=== PATIENT | female | born 1960 | race Caucasian/White ===

== ENCOUNTER 2018-09-08 11:35 | Inpatient (IN) ==
[2018-09-08] MEDS ORDERED: MOM Conc 10 ML UD.LIQ PO PRN (13:50)
[2018-09-08] MEDS ORDERED: traMADol 50 MG TABLET PO PRN (13:50)
[2018-09-08] MEDS ORDERED: Naloxone 0.4 MG/ML INJ IVP PRN (13:50)
[2018-09-08] MEDS ORDERED: *HR* Promethazine 25 MG/ML VIAL IVP PRN (13:50)
[2018-09-08] MEDS ORDERED: Acetaminophen 325 MG TABLET PO PRN (13:50)
[2018-09-08] MEDS ORDERED: Ondansetron 4 MG/2 ML VIAL IVP PRN (13:50)
[2018-09-08] MEDS ORDERED: Mag Hydrox/Al Hydrox/Simeth 30 ML UDC PO PRN (13:50)
[2018-09-08] MEDS ORDERED: D5% in Water 1,000 ML IVC PRN (13:54)
[2018-09-08] MEDS ORDERED: *HR* Dextrose 50 % in Water (Syg) 50 ML SYRINGE IVP PRN (13:54)
[2018-09-08] MEDS ORDERED: Dextrose Gel 15 GM/37.5 ML TUBE PO PRN ×2 (13:54)
--- NOTE | 2018-09-08 14:07 | Internal Med History&Physical ---
Date of Encounter: 09/08/18 Time of Encounter: 14:07 Internal Medicine - H&P: HPI Admitted From: Home Plans for Post Hospital Care: Home History of present illness: Ms. Orosco is a 58 year old female with past medical history of diabetes and hypertension presented with 8 days history of right lower extremity painful rash. It was last Thursday when she first found out boil at the upper right thigh, the bild rapidly progressed and spread to almost whole right thigh, she was seen here at ED, Bactrim was prescribed and pt was discharged home. She took the meds and noticed the red area has decreased. After she took abx for 7 days, there is still red area below the groin persisted and became itchy and painful. PT was seen at General Surgery office and a ultrasound did not show abscess. She wa directed to this hospital for admission. She denies trauma or insect bite to the right leg. No fever, chills, or night sweats. No Hx of MRSA of similar skin infection in the past. She has hx of DM but was well controlled. Reported hx of HTN and take meds for that. Code status discussed with patient and she wishes to be full code. Past Med Surg Social Fam HX - Past Medical History Medical history: diabetes, GERD, hyperlipidemia, hypertension Psychiatric history: no psych history - Past Surgical History Surgical History: no surgical history - Social History Smoking Status: Former smoker Smokeless Tobacco Status: No Alcohol use: none Drug use: none Internal Medicine - H&P: Meds Ranitidine HCl [Heartburn Relief] 150 mg PO BID 02/10/16 [History] Simvastatin [Zocor] 20 mg PO DAILY 02/10/16 [History] metFORMIN [Glucophage] 500 mg PO BID 02/10/16 [History] Telmisartan/Hydrochlorothiazid 20 mg PO DAILY 04/24/18 [History] Clindamycin [Cleocin] 150 mg PO Q6HR #40 capsule 08/31/18 [Rx] Sulfamethoxazole/Trimeth DS [Bactrim DS] 1 each PO BID #20 tablet 08/31/18 [Rx] Allergy/AdvReac Type Severity Reaction Status Date / Time No Known Allergies Allergy Verified 04/24/18 14:00 All Systems PM: A 10-system review of systems was performed and is negative for pertinent findings except as documented above in the HPI. Review of systems: REVIEW OF SYSTEMS: CONSTITUTIONAL: No weight loss, fever, chills, weakness or fatigue. HEENT: Eyes: No visual loss, blurred vision, double vision or yellow sclerae. Ears, Nose, Throat: No hearing loss, sneezing, congestion, runny nose or sore throat. SKIN: No rash or itching. CARDIOVASCULAR: No chest pain, chest pressure or chest discomfort. No palpitations or edema. RESPIRATORY: No shortness of breath, cough or sputum. GASTROINTESTINAL: No anorexia, nausea, vomiting or diarrhea. No abdominal pain or blood. GENITOURINARY: No dysuria, urgency, or frequency. NEUROLOGICAL: No headache, dizziness, syncope, paralysis, ataxia, numbness or tingling in the extremities. No change in bowel or bladder control. MUSCULOSKELETAL: No muscle, back pain, joint pain or stiffness. HEMATOLOGIC: No anemia, bleeding or bruising. LYMPHATICS: No enlarged nodes. No history of splenectomy. PSYCHIATRIC: No history of depression or anxiety. ENDOCRINOLOGIC: No reports of sweating, cold or heat intolerance. No polyuria or polydipsia. - Constitutional General appearance: Present: A&O X 3 Exam: PHYSICAL EXAMINATION: GENERAL APPEARANCE: The patient is alert, oriented and in no acute distress. HEENT: Head is normocephalic. The sinuses are nontender. Pupils are equal and reactive. The nares are patent. Oropharynx clear without lesions. NECK: Supple without lymphadenopathy. HEART: Regular rate and rhythm. LUNGS: No crackles or wheezes are heard. ABDOMEN: Soft, nontender, nondistended with good bowel sounds heard. Inguinal area is normal. EXTREMITIES: right thigh erythematous rash noted without signs of abscess. NEUROLOGICAL: Gross nonfocal. SKIN: Warm and dry without any rash. - Assessment and Plan (1) Cellulitis of right thigh Status: Acute Assessment and plan: Right thigh cellulitis, failed oral abx, no abscess. Blood cx ordered. IV abx with Zosyn and vanco started. (2) HTN (hypertension) Status: Chronic Assessment and plan: continue monitoring BP, continue home meds. Qualifiers: Hypertension type: essential hypertension Qualified Code(s): I10 - Essential (primary) hypertension (3) Diabetes mellitus Status: Chronic Assessment and plan: A1c 5.9 in 03/2018. takes metformin at home. Hold metformin, started on insulin sliding scale. Qualifiers: Diabetes mellitus type: type 2 Diabetes mellitus penitentiary insulin use: without penitentiary use Diabetes mellitus complication status: without complication Qualified Code(s): E11.9 - Type 2 diabetes mellitus without complications (4) Morbid obesity with BMI of 40.0-44.9, adult Status: Chronic Assessment and plan: weight control discussed with patient. (5) DVT prophylaxis Status: Acute Assessment and plan: Heparin sq. - Time Spent With Patient Total time spent is greater than 50% in coordination of care (as documented) at patient's floor/unit and/or counseling patient: Greater than 35 minutes
[2018-09-08 15:34] LABS: Basophils # 0.1 K/mcL (0.0-0.2); Basophils % 0.9 %; Eosinophils # 0.4 K/mcL (0.0-0.6); Eosinophils % 4.4 %; Hematocrit 41.7 % (35.3-44.9); Hemoglobin 13.6 g/dL (11.5-15.4); Immature Granulocytes % 0.5 % (0-4); Lymphocytes % 25.2 %; Mean Corpuscular HGB Conc 32.6 g/dL (31.6-35.5); Mean Corpuscular Hemoglobin 29.8 pg (28.0-33.3); Mean Corpuscular Volume 91.4 fL (83.0-100.0); Mean Platelet Volume 9.2 fL (9.4-12.4); Monocytes # 0.6 K/mcL (0.0-1.3); Monocytes % 7.9 %; Neutrophils # 4.9 K/mcL (1.6-8.9); Platelet Count 341 K/mcL (140-400); Red Blood Count 4.56 M/mcL (3.82-4.97); Red Cell Distribution Width 12.6 % (11.5-14.5); Segmented Neutrophils % 61.1 %; White Blood Count 8.1 K/mcL (4.3-11.1)
[2018-09-08 15:54] LABS: BUN/Creatinine Ratio 17 (6-26); Blood Urea Nitrogen 13 mg/dL (6-20); Calcium 9.7 mg/dL (8.6-10.3); Carbon Dioxide 28 mEq/L (23-29); Chloride 101 mEq/L (98-107); Glucose 89 mg/dL (70-105); Osmolality,Calculated 286 (280-300); Potassium 4.2 mEq/L (3.5-5.1); Sodium 138 mEq/L (136-145); eGFR For African Americans > 60 (> 60); eGFR For Non-African Americans > 60 (> 60)
[2018-09-08] MEDS: Piperacillin/Tazobactam 3.375 GM in 0.9 % Sodium Chloride Mini Bag 100 ML IVPB SCH (16:18)
[2018-09-08] MEDS: Insulin LISPRO 300 UNITS/3 ML VIAL SQ SCH ×2 (18:33→21:38)
[2018-09-08] MEDS: *HR* Heparin 5,000 UNIT/ML VIAL SQ SCH (18:57)
[2018-09-08] MEDS: Famotidine 20 MG TABLET PO SCH (21:37)
[2018-09-09] MEDS: Piperacillin/Tazobactam 3.375 GM in 0.9 % Sodium Chloride Mini Bag 100 ML IVPB SCH ×3 (00:30→16:28)
--- NOTE | 2018-09-09 07:36 | Internal Med Progress Note ---
<Raheem Garcia - Last Filed: 09/09/18 14:34> Hospitalist Progress Note - Encounter Date of Encounter: 09/09/18 - Exam Vitals: Temp Pulse Resp BP Pulse Ox 98.0 F 71 17 116/75 96 09/09/18 12:00 09/09/18 12:00 09/09/18 12:00 09/09/18 12:00 09/09/18 12:00 - Assessment and Plan (1) Cellulitis of right thigh Current Visit: No Status: Acute (2) HTN (hypertension) Current Visit: No Status: Chronic (3) Diabetes mellitus Current Visit: No Status: Chronic (4) Morbid obesity with BMI of 40.0-44.9, adult Current Visit: No Status: Chronic (5) DVT prophylaxis Current Visit: No Status: Acute - Time Spent with Patient Total time spent is greater than 50% in coordination of care (as documented) at patient's floor/unit and/or counseling patient: Internal Medicine: Result - Labs CBC & Chem 7: 09/08/18 15:17 09/09/18 06:50 Labs: Short CBC 09/08/18 Range/Units 15:17 WBC 8.1 (4.3-11.1) K/mcL Hgb 13.6 (11.5-15.4) g/dL Hct 41.7 (35.3-44.9) % Plt Count 341 (140-400) K/mcL Neutrophils # 4.9 (1.6-8.9) K/mcL BMP 09/08/18 09/09/18 15:17 06:50 Sodium 138 137 Potassium 4.2 4.2 Chloride 101 101 Carbon Dioxide 28 27 BUN 13 14 Creatinine 0.75 0.82 Glucose 89 149 H Calcium 9.7 9.5 Liver Function 09/09/18 Range/Units 06:50 Total Bilirubin 0.4 (0.3-1.0) mg/dL AST 19 (13-39) Units/L ALT 30 (7-52) Units/L Alkaline Phosphatase 104 (34-104) Units/L Albumin 4.3 (3.5-5.7) g/dL Consult Discharge Plan - Plan Referrals: Oswaldo Metzger DO [Primary Care Provider] - - Attending Attestation I examined this patient and my medical decision-making was reviewed with the Resident Physician. I agree with the documented findings, disposition and treatment plan as described except to the extent set forth below. Patient seen and examined at bedside. Patient states that she feels better today. She feels like her pain and swelling in her left thigh is improving. De nies any fevers or chills. On exam she has erythema of the left upper thigh with a small area of ulceration with no drainage present. No obvious fluctuance or induration appreciated. Left lower extremity cellulitis: Failed outpatient treatment with 7 days of Bactrim. Currently on vancomycin and Zosyn seems to be recovering well. Afebrile, no leukocytosis. Continue IV antibiotics for now. Type 2 diabetes: Blood sugars under good control. Continue sliding scale insulin. <Sterling Chaparro - Last Filed: 09/09/18 14:52> Hospitalist Progress Note - Encounter Date of Encounter: 09/09/18 Time of Encounter: 08:40 - Subjective Interval History: When seen today patient was resting comfortably in her bed. She says the swelling in her left lower extremity has decreased since admission and continues to improve. She says the pain has also improved as well. Denies any fever. Denies any chest pain or shortness of breath. Denies any nausea or vomiting. Denies any abdominal pain. - Exam Vitals: Temp Pulse Resp BP Pulse Ox 97.9 F 73 14 115/62 97 09/09/18 03:33 09/09/18 03:33 09/09/18 03:33 09/09/18 03:33 09/09/18 03:33 Exam: GENERAL APPEARANCE: Well developed, well nourished, alert and cooperative, and appears to be in no acute distress. HEAD: normocephalic. EYES: vision is grossly intact. EARS: hearing grossly intact. NOSE: No nasal discharge. CARDIAC: Normal S1 and S2. No S3, S4 or murmurs. Rhythm is regular. Extremities are warm and well perfused. Capillary refill is less than 2 seconds. No carotid bruits. LUNGS: Clear to auscultation and percussion without rales, rhonchi, wheezing or diminished breath sounds. ABDOMEN: Positive bowel sounds. Soft, nondistended, nontender. No guarding or rebound. No masses. MUSKULOSKELETAL: Adequately aligned spine. ROM intact spine and extremities. No joint erythema or tenderness. Normal muscular development. Normal gait. EXTREMITIES: No significant deformity or joint abnormality. Erythematous swelling of the LLE 3 cm in diameter with no pain to palpation. Peripheral pulses intact. No varicosities. LOWER EXTREMITY: Examination of both feet reveals all toes to be normal in size and symmetry, normal range of motion, normal sensation with distal capillary filling of less than 2 seconds without tenderness, swelling, discoloration, nodules, weakness or deformity; examination of both ankles, knees, legs, and hips reveals normal range of motion, normal sensation without tenderness, swelling, discoloration, crepitus, weakness or deformity. SKIN: Skin normal color, texture and turgor with no lesions or eruptions. PSYCHIATRIC: The mental examination revealed the patient was oriented to person, place, and time. - Assessment and Plan (1) Cellulitis of left thigh Current Visit: Yes Status: Acute Assessment and Plan: Patient had failed oral antibiotic therapy with Bactrim at home. Ultrasound showed no abscess. No history of MRSA infection. Started on Zosyn and vancomycin. Patient has been afebrile. Vital signs stable. Left lower extremity swelling has decreased since admission. Plan: - Continue with Zosyn and vancomycin day #2. - Blood cultures pending, NGTD. (2) HTN (hypertension) Current Visit: No Status: Chronic Assessment and Plan: Blood pressure controlled. Plan: C/W losartan. (3) Diabetes mellitus Current Visit: No Status: Chronic Assessment and Plan: Blood sugars controlled. Last A1c of 5.9. Plan: - C/W sliding scale. (4) Morbid obesity with BMI of 40.0-44.9, adult Current Visit: No Status: Chronic Assessment and Plan: Weight control discussed with patient. DVT Prophylaxis: Heparin subcutaneously. - Time Spent with Patient Total time spent is greater than 50% in coordination of care (as documented) at patient's floor/unit and/or counseling patient: Internal Medicine: Result - Labs CBC & Chem 7: 09/08/18 15:17 09/09/18 06:50 Labs: Short CBC 09/08/18 Range/Units 15:17 WBC 8.1 (4.3-11.1) K/mcL Hgb 13.6 (11.5-15.4) g/dL Hct 41.7 (35.3-44.9) % Plt Count 341 (140-400) K/mcL Neutrophils # 4.9 (1.6-8.9) K/mcL BMP 09/08/18 15:17 Sodium 138 Potassium 4.2 Chloride 101 Carbon Dioxide 28 BUN 13 Creatinine 0.75 Glucose 89 Calcium 9.7 <Raheem Garcia - Last Filed: 09/09/18 14:34> (2) HTN (hypertension) Qualifiers: Hypertension type: essential hypertension Qualified Code(s): I10 - Essential (primary) hypertension (3) Diabetes mellitus Qualifiers: Diabetes mellitus type: type 2 Diabetes mellitus long-term insulin use: without long-term use Diabetes mellitus complication status: without complication Qualified Code(s): E11.9 - Type 2 diabetes mellitus without complications <Sterling Chaparro - Last Filed: 09/09/18 14:52> (2) HTN (hypertension) Qualifiers: Hypertension type: essential hypertension Qualified Code(s): I10 - Essential (primary) hypertension (3) Diabetes mellitus Qualifiers: Diabetes mellitus type: type 2 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
[2018-09-09 08:15] LABS: Alanine Aminotransferase 30 Units/L (7-52); Albumin 4.3 g/dL (3.5-5.7); Albumin/Globulin Ratio 1.3 (1.1-2.2); Alkaline Phosphatase 104 Units/L (34-104); Aspartate Amino Transferase 19 Units/L (13-39); BUN/Creatinine Ratio 17 (6-26); Bilirubin,Total 0.4 mg/dL (0.3-1.0); Blood Urea Nitrogen 14 mg/dL (6-20); Calcium 9.5 mg/dL (8.6-10.3); Carbon Dioxide 27 mEq/L (23-29); Chloride 101 mEq/L (98-107); Globulin 3.3 g/dL (2.4-3.5); Glucose 149 mg/dL (70-105); Magnesium 2.3 mg/dL (1.6-2.6); Osmolality,Calculated 287 (280-300); Potassium 4.2 mEq/L (3.5-5.1); Sodium 137 mEq/L (136-145); Total Protein 7.6 g/dL (6.4-8.9); eGFR For African Americans > 60 (> 60); eGFR For Non-African Americans > 60 (> 60)
[2018-09-09] MEDS: *HR* Heparin 5,000 UNIT/ML VIAL SQ SCH ×2 (08:16→16:29)
[2018-09-09] MEDS: Insulin LISPRO 300 UNITS/3 ML VIAL SQ SCH ×4 (08:16→21:37)
[2018-09-09] MEDS: hydroCHLOROthiazide 25 MG TABLET PO SCH (08:18)
[2018-09-09] MEDS: Famotidine 20 MG TABLET PO SCH ×3 (08:18→21:46)
[2018-09-10] MEDS: Piperacillin/Tazobactam 3.375 GM in 0.9 % Sodium Chloride Mini Bag 100 ML IVPB SCH ×3 (00:44→17:21)
[2018-09-10 03:21] LABS: Hematocrit 37.9 % (35.3-44.9); Hemoglobin 12.4 g/dL (11.5-15.4); Mean Corpuscular HGB Conc 32.7 g/dL (31.6-35.5); Mean Corpuscular Volume 91.5 fL (83.0-100.0); Mean Platelet Volume 9.2 fL (9.4-12.4); Platelet Count 306 K/mcL (140-400); Red Blood Count 4.14 M/mcL (3.82-4.97); Red Cell Distribution Width 12.7 % (11.5-14.5); White Blood Count 7.9 K/mcL (4.3-11.1)
[2018-09-10] MEDS: *HR* Heparin 5,000 UNIT/ML VIAL SQ SCH ×2 (05:19→17:21)
--- NOTE | 2018-09-10 10:11 | Internal Med Progress Note ---
<Sterling Chaparro - Last Filed: 09/10/18 13:28> Hospitalist Progress Note - Encounter Date of Encounter: 09/10/18 Time of Encounter: 08:40 - Subjective Interval History: When seen today, patient walking around comfortably in her room. She says the swelling in the left lower extremity has improved since yesterday. She admits to some diarrhea since her admission here. She denies any melena or hematochezia. Denies any abdominal pain, nausea, or vomiting. Denies any fever. Continues to admit to minor pain with palpation of the LLE swelling, however has been improving. - Exam Vitals: Temp Pulse Resp BP Pulse Ox 98.1 F 67 16 122/81 98 09/10/18 08:00 09/10/18 08:00 09/10/18 08:00 09/10/18 08:00 09/10/18 08:00 Exam: GENERAL APPEARANCE: Well developed, well nourished, alert and cooperative, and appears to be in no acute distress. HEAD: normocephalic. EYES: vision is grossly intact. EARS: hearing grossly intact. NOSE: No nasal discharge. CARDIAC: Normal S1 and S2. No S3, S4 or murmurs. Rhythm is regular. Extremities are warm and well perfused. Capillary refill is less than 2 seconds. No carotid bruits. LUNGS: Clear to auscultation and percussion without rales, rhonchi, wheezing or diminished breath sounds. ABDOMEN: Positive bowel sounds. Soft, nondistended, nontender. No guarding or rebound. No masses. MUSKULOSKELETAL: Adequately aligned spine. ROM intact spine and extremities. No joint erythema or tenderness. Normal muscular development. Normal gait. EXTREMITIES: No significant deformity or joint abnormality. Erythematous swelling of the LLE 3 cm in diameter with no pain to palpation. Peripheral pulses intact. No varicosities. LOWER EXTREMITY: Examination of both feet reveals all toes to be normal in size and symmetry, normal range of motion, normal sensation with distal capillary filling of less than 2 seconds without tenderness, swelling, discoloration, nodules, weakness or deformity; examination of both ankles, knees, legs, and hips reveals normal range of motion, normal sensation without tenderness, swelling, discoloration, crepitus, weakness or deformity. SKIN: Skin normal color, texture and turgor with no lesions or eruptions. PSYCHIATRIC: The mental examination revealed the patient was oriented to person, place, and time. - Assessment and Plan (1) Cellulitis of left thigh Current Visit: Yes Status: Acute Assessment and Plan: Patient had failed oral antibiotic therapy with Bactrim at home. Ultrasound showed no abscess. No history of MRSA infection. Started on Zosyn and vancomycin. Patient has been afebrile. Vital signs stable. Left lower ext remity swelling continues to improve. Plan: - Continue with Zosyn and vancomycin day #3. - Blood cultures pending, NGTD. - Plan to discharge tomorrow to finish antibiotic course with doxycycline. (2) Diarrhea Current Visit: Yes Status: Acute Assessment and Plan: Likely secondary to antibiotic use. Has been afebrile. Denies any abdominal pain. Vital signs have been stable. Came in with leukocytosis, howver attributable to cellulitis Plan: - R/O C. Diff. - C.Diff precautions. - Continue to monitor. (3) HTN (hypertension) Current Visit: No Status: Chronic Assessment and Plan: Blood pressure controlled. Plan: C/W losartan. (4) Diabetes mellitus Current Visit: No Status: Chronic Assessment and Plan: Blood sugars controlled. Last A1c of 5.9. Plan: - C/W sliding scale. (5) Morbid obesity with BMI of 40.0-44.9, adult Current Visit: No Status: Chronic Assessment and Plan: Weight control discussed with patient. DVT Prophylaxis: Heparin subcutaneously. - Time Spent with Patient Total time spent is greater than 50% in coordination of care (as documented) at patient's floor/unit and/or counseling patient: Internal Medicine: Result - Labs CBC & Chem 7: 09/10/18 02:46 09/09/18 06:50 Labs: Short CBC 09/10/18 Range/Units 02:46 WBC 7.9 (4.3-11.1) K/mcL Hgb 12.4 (11.5-15.4) g/dL Hct 37.9 (35.3-44.9) % Plt Count 306 (140-400) K/mcL Consult Discharge Plan - Plan Referrals: Oswaldo Metzger DO [Primary Care Provider] - <Raheem Garcia - Last Filed: 09/10/18 14:15> Hospitalist Progress Note - Encounter Date of Encounter: 09/10/18 - Exam Vitals: Temp Pulse Resp BP Pulse Ox 98.1 F 70 16 123/81 95 09/10/18 11:53 09/10/18 11:53 09/10/18 11:53 09/10/18 11:53 09/10/18 11:53 - Assessment and Plan (1) Cellulitis of right thigh Current Visit: No Status: Acute (2) HTN (hypertension) Current Visit: No Status: Chronic (3) Diabetes mellitus Current Visit: No Status: Chronic (4) Morbid obesity with BMI of 40.0-44.9, adult Current Visit: No Status: Chronic (5) DVT prophylaxis Current Visit: No Status: Acute - Time Spent with Patient Total time spent is greater than 50% in coordination of care (as documented) at patient's floor/unit and/or counseling patient: Internal Medicine: Result - Labs CBC & Chem 7: 09/10/18 02:46 09/09/18 06:50 Labs: Short CBC 09/10/18 Range/Units 02:46 WBC 7.9 (4.3-11.1) K/mcL Hgb 12.4 (11.5-15.4) g/dL Hct 37.9 (35.3-44.9) % Plt Count 306 (140-400) K/mcL - Attending Attestation I examined this patient and my medical decision-making was reviewed with the Resident Physician. I agree with the documented findings, disposition and treatment plan as described except to the extent set forth below. Patient seen and examined at bedside. Patient states that she feels better today. She feels like her pain and swelling in her left thigh continues to. Denies any fevers or chills. On exam she has erythema of the left upper thigh with a small area of ulceration with no drainage present. No obvious fluctuance or induration appreciated. Appears decreased from yesterday Left lower extremity cellulitis: Failed outpatient treatment with Bactrim. Currently on vancomycin and Zosyn seems to be recovering well. Afebrile, no leukocytosis. Continue IV antibiotics for now, likely transition to by mouth tomorrow and discharge. Type 2 diabetes: Blood sugars under good control. Continue sliding scale insulin. 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 insulin use: without fdc use Diabetes mellitus complication status: without complication Qualified Code(s): E11.9 - Type 2 diabetes mellitus without complications <Raheem Garcia - Last Filed: 09/10/18 14:15> (2) HTN (hypertension) Qualifiers: Hypertension type: essential hypertension Qualified Code(s): I10 - Essential (primary) hypertension (3) Diabetes mellitus Qualifiers: Diabetes mellitus type: type 2 Diabetes mellitus 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
[2018-09-10] MEDS: Insulin LISPRO 300 UNITS/3 ML VIAL SQ SCH ×4 (10:14→20:36)
[2018-09-10] MEDS: hydroCHLOROthiazide 25 MG TABLET PO SCH (10:19)
[2018-09-10] MEDS: Famotidine 20 MG TABLET PO SCH ×2 (10:19→20:36)
[2018-09-11] MEDS: *HR* Heparin 5,000 UNIT/ML VIAL SQ SCH (06:06)
[2018-09-11] MEDS: Insulin LISPRO 300 UNITS/3 ML VIAL SQ SCH ×2 (08:13→12:30)
[2018-09-11] MEDS: Piperacillin/Tazobactam 3.375 GM in 0.9 % Sodium Chloride Mini Bag 100 ML IVPB SCH ×2 (08:20)
[2018-09-11] MEDS: hydroCHLOROthiazide 25 MG TABLET PO SCH (08:20)
[2018-09-11] MEDS: Famotidine 20 MG TABLET PO SCH (08:20)
--- NOTE | 2018-09-11 09:52 | Discharge Summary ---
- NOTES TO OUTPATIENT PROVIDER Notes to Outpatient Provider: LLE cellulitis. Failed outpatient treatment with bactrim. Put on IV van and zosyn in hospital. Discharged with doxycycline 6 days to complete total of 10 days antibiotic treatment. Orders not resulted at time of discharge: Pending orders 09/08/18 15:17 Culture,Blood [BC] Stat Date of Encounter: 09/11/18 Time of Encounter: 09:00 - Discharge Diagnosis (1) Cellulitis of left thigh Priority: Primary Status: Acute (2) Diarrhea Priority: Secondary Status: Acute Qualifiers: Diarrhea type: unspecified type Qualified Code(s): R19.7 - Diarrhea, unspecified (3) HTN (hypertension) Priority: Secondary Status: Chronic Qualifiers: Hypertension type: essential hypertension Qualified Code(s): I10 - Essential (primary) hypertension (4) Diabetes mellitus Priority: Secondary Status: Chronic Qualifiers: Diabetes mellitus type: type 2 Diabetes mellitus roasterman insulin use: without penitentiary use Diabetes mellitus complication status: without complication Qualified Code(s): E11.9 - Type 2 diabetes mellitus without complications (5) Morbid obesity with BMI of 40.0-44.9, adult Priority: Secondary Status: Chronic Hospital course: Ms. Orosco is a 58 year old female with past medical history of diabetes and hypertension presented with 8 days history of left lower extremity painful rash. It was last Thursday when she first found out boil at the upper left thigh, the boil rapidly progressed and spread to almost whole left thigh, she was seen here at ED, Bactrim was prescribed and pt was discharged home. She took the meds and noticed the red area has decreased. After she took abx for 7 days, there is still red area below the groin persisted and became itchy and painful. PT was seen at [facility] office and a ultrasound did not show abscess. She wa directed to this hospital for admission. Denied trauma or insect bite to the right leg. No fever, chills, or night sweats. No Hx of MRSA of similar skin infection in the past. She has hx of DM but was well controlled. Upon admission, patient was afebrile and vital signs were stable. Blood cultures were taken and showed no growth to date. She was started on zosyn and vanc, completing 4 days worth. During her hospital course, the swelling/erythema of her LLE has been progressively improving. When seen today, patient denies any pain from her LLE. Denies any fever, chills, abdominal pain, nausea, or vomiting. Denies any chest pain or SOB. Denies any cough or wheezing. Patient will be discharged with 6 days worth of doxycycline to complete a 10-day course of antibiotic treatment. Warned patient that if she develops any fever, increased swelling of the lower extremity, nausea, or vomiting to notify her PCP immediately or go to the ER. Patient to follow-up with her PCP in the next 3-5 days. - Time Spent with Patient Total time spent providing and/or coordinating discharge services: Time spent: Greater than 30 minutes - Discharge Medications Prescriptions: New Doxycycline 100 mg PO BID 6 Days #12 capsule Continued Simvastatin [Zocor] 20 mg PO QPM Ranitidine HCl [Heartburn Relief] 150 mg PO BID metFORMIN [Glucophage] 500 mg PO BID Mupirocin [Bactroban Oint] 1 appl TP TID Telmisartan/Hydrochlorothiazid [Micardis Hct 40-12.5 mg Tablet] 0.5 tab PO QAM Discontinued Sulfamethoxazole/Trimeth DS [Bactrim DS] 1 each PO BID #20 tablet Home Medications: Ranitidine HCl [Heartburn Relief] 150 mg PO BID 02/10/16 [History] Simvastatin [Zocor] 20 mg PO QPM 02/10/16 [History] metFORMIN [Glucophage] 500 mg PO BID 02/10/16 [History] Mupirocin [Bactroban Oint] 1 appl TP TID 09/08/18 [History] Telmisartan/Hydrochlorothiazid [Micardis Hct 40-12.5 mg Tablet] 0.5 tab PO QAM 09/08/18 [History] Doxycycline 100 mg PO BID 6 Days #12 capsule 09/11/18 [Rx] Allergies/Adverse Reactions: Allergy/AdvReac Type Severity Reaction Status Date / Time No Known Allergies Allergy Verified 09/08/18 20:19 Date of admission: 09/09/18 15:06 Primary care physician: Oswaldo Metzger DO Consults: 09/08/18 12:59 Consult to [facility] Consultant [CONS] Routine Reason for SW Consult: Potential IV abx? Discharging clinician: Sterling Chaparro Anticipated date of discharge: 09/11/18 - Constitutional Vitals: Temp Pulse Resp BP Pulse Ox 98.2 F 65 15 126/84 97 09/11/18 07:14 09/11/18 07:14 09/11/18 07:14 09/11/18 07:14 09/11/18 07:14 General appearance: Present: A&O X 3 Exam: GENERAL APPEARANCE: Well developed, well nourished, alert and cooperative, and appears to be in no acute distress. HEAD: normocephalic. EYES: vision is grossly intact. EARS: hearing grossly intact. NOSE: No nasal discharge. CARDIAC: Normal S1 and S2. No S3, S4 or murmurs. Rhythm is regular. Extremities are warm and well perfused. Capillary refill is less than 2 seconds. No carotid bruits. LUNGS: Clear to auscultation and percussion without rales, rhonchi, wheezing or diminished breath sounds. ABDOMEN: Positive bowel sounds. Soft, nondistended, nontender. No guarding or rebound. No masses. MUSKULOSKELETAL: Adequately aligned spine. ROM intact spine and extremities. No joint erythema or tenderness. Normal muscular development. Normal gait. EXTREMITIES: No significant deformity or joint abnormality. Erythematous swelling of the LLE 2 cm in diameter with no pain to palpation. Peripheral pulses intact. No varicosities. LOWER EXTREMITY: Examination of both feet reveals all toes to be normal in size and symmetry, normal range of motion, normal sensation with distal capillary filling of less than 2 seconds without tenderness, swelling, discoloration, nodules, weakness or deformity; examination of both ankles, knees, legs, and hips reveals normal range of motion, normal sensation without tenderness, swelling, discoloration, crepitus, weakness or deformity. SKIN: Skin normal color, texture and turgor with no lesions or eruptions. PSYCHIATRIC: The mental examination revealed the patient was oriented to person, place, and time. - Patient Status Disposition: Home, Self-Care Condition: Good Functional capacity at discharge: independent ambulation Overall status at discharge: patient is progressing back to baseline - Discharge Instructions Follow Up With: Oswaldo Metzger DO [Primary Care Provider] - - Diet and Activity Activity: increase activity as tolerated Diet: diabetic diet
[2018-09-11 11:44] VITALS: BP 109/58
[2018-09-11] MEDS ORDERED: Aminoglycoside Consult 1 EACH MC ONE (13:08)
== END 2018-09-11 13:09 | disposition home or self-care (01) | DRG 383 ==
LOC: 3ANU → SUATTDRO 14:54
PROVIDERS: ADMIT Internal Medicine Nephrology; ATTEND Internal Medicine